=== PATIENT | male | born 1980 | race Caucasian/White ===

== ENCOUNTER 2017-03-11 06:40 | Emergency (ER) | payer MEDICAID, OTHER ==
[~2017-03-11] VITALS: Ht 180.3 cm; Wt 111.1 kg
--- NOTE | 2017-03-11 06:40 | NUR ---
PT BIB RA WITH A C/O RT SIDED FLANK PAIN THAT RADIATES TO THE RT GROIN/TESTICLE. PT IS AA7O X4. 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 PT WAS DRIVING TO WORK AT 0545 AND HAD TO ASSISTANT SPA DIRECTOR AND CALL 911 BECAUSE THE PAIN BECAME SEVERE. PT WAS TAKEN TO ROOM #[address] ON THE MONITOR AND CONTINUOUS PULSE OX.
--- NOTE | 2017-03-11 06:40 | NUR ---
PT WAS NOT ABLE TO GIVE A URINE SAMPLE.
--- NOTE | 2017-03-11 06:55 | NUR ---
18G IV STARTED RFA. BLOOD WAS NOT ABLE TO BE DRAWN. LAB CALLED FOR DRAW.
[2017-03-11] MEDS ORDERED: KETOROLAC TROMETHAMINE INJ 30 MG/ML VIAL ONE (06:56)
[2017-03-11] MEDS ORDERED: ONDANSETRON HCL/PF 4 MG/2 ML VIAL ONE (06:56)
[2017-03-11] MEDS ORDERED: ONDANSETRON HCL/PF 4 MG/2 ML VIAL IVP ONE (07:00)
[2017-03-11] MEDS ORDERED: IV NS 0.9% 1,000 ML BAG IV ONE (07:00)
[2017-03-11] MEDS ORDERED: KETOROLAC TROMETHAMINE INJ 30 MG/ML VIAL IV ONE (07:00)
--- NOTE | 2017-03-11 07:00 | NUR ---
LAB AT THE BEDSIDE FOR BLOOD DRAW.
--- NOTE | 2017-03-11 07:08 | NUR ---
PT LEFT FOR CT VIA WC.
[2017-03-11 07:15] LABS: BASOPHILS % (AUTO) 0.5 % (0.0-2.0); EOSINOPHILS # (AUTO) 0.2 /CMM (0.0-0.7); EOSINOPHILS % (AUTO) 3.3 % (0.0-6.0); HEMATOCRIT 41 % (39-51); HEMOGLOBIN 13.7 g/dL (13.5-17.5); LYMPHOCYTES # (AUTO) 2.1 /CMM (0.8-4.8); LYMPHOCYTES % (AUTO) 32.2 % (20.0-44.0); MEAN CORPUSCULAR HEMOGLOBIN 29 PG (26.0-33.0); MEAN CORPUSCULAR HGB CONC 34 g/dl (31.0-36.0); MEAN CORPUSCULAR VOLUME 86 fL (80-96); MONOCYTES # (AUTO) 0.5 /CMM (0.1-1.30); MONOCYTES % (AUTO) 7.1 % (2.0-12.0); NEUTROPHILS # (AUTO) 3.7 /CMM (1.8-8.9); NEUTROPHILS % (AUTO) 56.9 % (43.0-81.0); PLATELET COUNT (AUTO) 138 /CMM (150-450); RDW COEFFICIENT OF VARIATION 13.7 (11.5-15.0); RED BLOOD CELL COUNT(AUTO) 4.71 MIL/uL (4.5-6.0); WHITE BLOOD COUNT (AUTO) 6.6 K/uL (4.3-11.0)
--- NOTE | 2017-03-11 07:15 | NUR ---
REPORT GIVEN TO SANDRA CAGEL FOR [facility]STER.
--- NOTE | 2017-03-11 07:17 | NUR ---
PT RETURNED FROM CT VIA WC.
--- NOTE | 2017-03-11 07:20 | NUR ---
RECEIVED PATIENT IN STABLE CONDITION. WILL CONTINUE TO MONITOR.
[2017-03-11 07:28] LABS: CALCIUM, SERUM 8.5 mg/dL (8.5-10.1); CARBON DIOXIDE 26 mmol/L (21-32); CHLORIDE 107 mmol/L (98-107); CREATININE 0.7 mg/dL (0.6-1.3); GLUCOSE 104 mg/dL (74-106); SODIUM SERUM 140 mmol/L (136-145); UREA NITROGEN, BLOOD 19 mg/dL (7-18)
[2017-03-11 07:35] LABS: TROPONIN I < 0.017 ng/mL (0.00-0.056)
[2017-03-11 07:42] LABS: ALANINE AMINOTRANSFERASE 26 U/L (12-78); ALBUMIN 3.8 g/dL (3.4-5.0); ALKALINE PHOSPHATASE 56 U/L (46-116); ASPARTATE AMINOTRANSFERASE 24 U/L (15-37); BILIRUBIN,DIRECT 0.1 mg/dL (0.0-0.2); BILIRUBIN,TOTAL 0.3 mg/dL (0.2-1.0); LIPASE 121 U/L (73-393); TOTAL PROTEIN, SERUM 6.8 g/dL (6.4-8.2)
--- NOTE | 2017-03-11 07:45 | NUR ---
URINE OBTAINED AND SENT TO LAB.
[2017-03-11 07:57] VITALS: BP 137/72
[2017-03-11 08:01] LABS: APPEARANCE,URINE CLEAR (CLEAR); BILIRUBIN,URINE NEGATIVE (NEGATIVE); BLOOD, URINE 3+ Ery/uL (NEGATIVE); COLOR,URINE YELLOW (YELLOW); KETONES,URINE NEGATIVE (NEGATIVE); LEUKOCYTE ESTERASE ,URINE NEGATIVE (NEGATIVE); NITRITE, URINE NEGATIVE (NEGATIVE); PROTEIN,URINE NEGATIVE (NEGATIVE); UGLUCOSE NEGATIVE (NEGATIVE); UROBILINOGEN,URINE 0.2 EU/dL (0.2)
--- NOTE | 2017-03-11 08:05 | NUR ---
Patient discharged to home in stable condition. Written and verbal after care instructions given. Patient verbalizes understanding of instruction.
[2017-03-11 08:17] LABS: BACTERIA,URINE Rare /HPF (None Seen); SQUAMOUS EPITHELIAL CELL,UR Rare /HPF (None Seen); WBC,URINE 0-2 /HPF (0-3)
== END 2017-03-11 08:05 | disposition home or self-care (01) ==
LOC: ER 06:41
DX: N23 Unspecified renal colic (principal)
CPT/HCPCS: 36415; 72128; 74176; 80048; 80076; 81001; 83690; 84484; 85025; 87086; 93005; 96361; 96374; 96375; 99285; A4606; J1885; J2405; J7030; Z7610; 81000-TC